=== PATIENT | female | born 1960 ===

== ENCOUNTER 2017-10-16 07:15 | Outpatient (CLI) | payer OTHER | END 2017-10-16 07:23 | disposition home or self-care (01) | LOC: SONOGRAMA 07:15 | DX: E04.1 Nontoxic single thyroid nodule (principal) ==

== ENCOUNTER 2020-10-21 09:44 | Outpatient (CLI) | payer OTHER | END 2020-10-21 10:31 | disposition home or self-care (01) | LOC: OFIC 805 09:44 | PROVIDERS: ATTEND Otolaryngology Otology & Neurotology | DX: H71.11 Cholesteatoma of tympanum, right ear (principal); H92.01 Otalgia, right ear ==

== ENCOUNTER 2021-01-15 05:20 | Day surgery (SDC) | payer OTHER ==
[~2021-01-15 05:20] MED LIST: ATORVASTATIN CA20 MG PO; BONIVA150 MG PO; ENALAPRIL MALE2.5 MG PO; MELATONIN10 MG PO; MELATONINA PO
[2021-01-15] MEDS ORDERED: CILOXAN5 ML OTIC (10:19)
[2021-01-15] MEDS ORDERED: MOTION SICKNESS25 M5 PO (10:19)
[2021-01-15] MEDS ORDERED: ZOFRAN8 MG PO (10:20)
[2021-01-15] MEDS ORDERED: AMOXICILLIN500 M1 PO (10:21)
== END 2021-01-15 13:20 | disposition home or self-care (01) ==
LOC: CIR.AMB 05:20
PROVIDERS: ATTEND Otolaryngology Otology & Neurotology
DX: H71.11 Cholesteatoma of tympanum, right ear (principal); H72.11 Attic perforation of tympanic membrane, right ear; Z20.822 Contact with and (suspected) exposure to COVID-19